=== PATIENT | male | born 1960 | race Caucasian/White ===

== ENCOUNTER 2016-09-19 06:54 | Day surgery (SDC) | payer OTHER ==
[~2016-09-19] VITALS: Ht 193 cm; Wt 112.0 kg
[~2016-09-19 06:54] MED LIST: AMOX875T PO
[2016-09-19 07:25] VITALS: BP 139/85; PULSE 64; RESP 16; TEMP 98.8; O2SAT 99
[2016-09-19] MEDS ORDERED: NEXI20CA PO (07:37)
[2016-09-19] MEDS ORDERED: ceFAZolin INJ 1,000 MG VIAL ONE (07:39)
[2016-09-19] MEDS ORDERED: METOPROLOL TARTRATE 25 MG TAB PO PRN (08:30)
[2016-09-19] MEDS ORDERED: INSULIN HUMAN REGULAR 1,000 UNITS/10 ML VIAL SQ PRN (08:30)
[2016-09-19] MEDS ORDERED: BUPIVACAINE HCL PF 0.5% 30 ML VIAL ONE (08:54)
[2016-09-19] MEDS ORDERED: LIDOCAINE HCL 2% 50 ML VIAL ONE (08:54)
[2016-09-19] MEDS ORDERED: SODIUM CHLORID 0.9% 500 ML IV SCH (09:00)
[2016-09-19] MEDS ORDERED: LACTATED RINGER'S 1000 ML IV SCH (09:00)
[2016-09-19] MEDS ORDERED: ceFAZolin 2 GM PREMIX 50 ML ONE (09:01)
[2016-09-19] MEDS ORDERED: NEOMYCIN/POLYMYXIN 1 ML G.U. IRRIGANT IR ONE (09:44)
[2016-09-19] MEDS ORDERED: DO NOT ADM ANY ANTICOAGULANT DRUGS XX PRN (11:04)
[2016-09-19] MEDS ORDERED: CEPH-460 PO (11:08)
[2016-09-19] MEDS ORDERED: NORC5TAB PO (11:08)
[2016-09-19] MEDS ORDERED: fentaNYL CITRATE 250 MCG/5 ML AMP ONE (11:15)
[2016-09-19] MEDS ORDERED: MIDAZOLAM HCL 2 MG/2 ML VIAL ONE (11:15)
[2016-09-19] MEDS ORDERED: MORPHINE SULFATE 4 MG/ML INJ ONE (11:16)
[2016-09-19] MEDS ORDERED: PROPOFOL 200 MG/20 ML AMP IV ONE (11:46)
[2016-09-19] MEDS ORDERED: PHENYLEPH/NS 1000 MCG/10 ML SYR IV ONE (11:46)
[2016-09-19] MEDS ORDERED: ONDANSETRON HCL 4 MG/2 ML VIAL IV PUSH ONE (11:46)
[2016-09-19] MEDS ORDERED: ePHEDrine/NS 50 MG/5 ML SYR IV ONE (11:46)
[2016-09-19] MEDS ORDERED: MEPERIDINE HCL 50 MG/ML VIAL IM PRN (12:00)
[2016-09-19] MEDS ORDERED: ACETAMINOPHEN/HYDROcodone 325 MG/5 MG TAB PO PRN (12:00)
[2016-09-19 12:05] VITALS: TEMP 97.4
[2016-09-19 12:16] VITALS: BP 156/75; PULSE 72; RESP 12; O2SAT 96
--- NOTE | 2016-09-19 14:13 | EKG ---
Date Performed: 09/19/2016 Time Performed: 08:02:28 PTAGE: 56 years EKG: SINUS BRADYCARDIA BORDERLINE ECG NO PREVIOUS TRACING DOCTOR: Dirk Terrell Interpretating Date/Time 09/19/2016 14:10:38
--- NOTE | 2016-09-23 08:15 | MP ---
cc: SEAN RONQUILLO III, M.D. DATE OF OPERATION 09/19/2016. PREOPERATIVE DIAGNOSIS Right fifth finger flexor tendon lacerations. PROCEDURE Right fifth finger exploration and repair of flexor digitorum profundus and flexor digitorum superficialis tendon. SURGEON Sean Ronquillo III, MD TOURNIQUET TIME Approximately 70 minutes at 200 mmHg. PROCEDURE The patient was brought to the operating room and placed supine on the operating room table. After the correct site and side of the surgery were verified by members of each team in the room multiple times including the patient and myself and after adequate preoperative markings and preoperative written consent were verified by everyone and after adequate preoperative time-out was performed to everyone's satisfaction, after adequate general anesthesia had been achieved, the right upper extremity was prepped and draped in traditional sterile surgical fashion. A 50/50 mixture of 2% plain lidocaine and 0.5% plain Marcaine was infiltrated in the skin and subcutaneous tissue in the palm to provide for postoperative pain control. The sutures were removed and the area reprepped. The limb was exsanguinated with a gentle Mikhail wrap and a highly placed, well-padded axillary tourniquet was inflated to 200 mmHg for approximately 70 minutes. The wound was opened. The culture was obtained from deep in the wound. Thorough irrigation was performed. Examination revealed both flexor tendons to the fifth finger were transected. The wound was then opened for exposure distally. The A1 sujatha was released. The flexor tendons were identified proximally and distally and both the FDS and the FDP tendons were repaired, the repair centered deep to the A2 sujatha. The A2 sujatha had to be reconstructed to allow for excursion as there was no motion underneath the sujatha once the repair was done and this was done with local tissue, mainly the sujatha itself using 4-0 Mersilene sutures. The flexor tendons were reapproximated, the FDS using 3-0 Prolene sutures in a xidxeh-[id number]-[id number] fashion on both corners and then the FDP was repaired using 3-0 Prolene sutures and tapered needles for a four core strand repair in a modified locking and nonlocking Dunn fashion. At the end, tenodesis was performed and was normal. There were no other anatomic abnormalities identified. Thorough irrigation was performed using saline. The skin edges were reapproximated using interrupted and running 5-0 chromic sutures. The hand and arm were thoroughly cleansed and dried. Betadine and Adaptic dressings was applied on top of the wound, followed by a very bulky, well-padded, well molded dorsal blocking splint keeping the third, fourth and fifth fingers flexed as well as the wrist gently flexed. The axillary tourniquet was released. The hand and all the fingers became immediately soft, pink and warm and had brisk capillary refill of less than 2 seconds. There was no bleeding or evidence thereof. Hemostasis was present. The patient was awakened from anesthesia and transported to the Post-Anesthesia Care Unit awake and in stable condition at the end of the case. Sponge, needle and instrument counts were correct at the end of the case as reported by the nurses in the room. MD VARGAS Norton III/RODRICK /11:11 AM /7:56 AM
== END 2016-09-19 12:35 | disposition home or self-care (01) ==
LOC: HSDC 06:54
PROVIDERS: ATTEND Orthopaedic Surgery Hand Surgery
DX: S66.126A Laceration of flexor muscle, fascia and tendon of right little finger at wrist and hand level, initial encounter (principal); W27.8XXA Contact with other nonpowered hand tool, initial encounter; Y93.89 Activity, other specified; Z01.810 Encounter for preprocedural cardiovascular examination
CPT/HCPCS: 01810; 26356; 87015; 87070; 87102; 87116; 87205; 87206; 93005; J0690; J2250; J2270; J2370; J2405; J3010

== ENCOUNTER 2017-12-08 19:28 | Emergency (ER) | payer OTHER ==
[~2017-12-08] VITALS: Ht 193 cm; Wt 112.5 kg
[~2017-12-08 19:28] MED LIST changes: -AMOX875T PO; +NEXI20CA PO
[2017-12-08 21:15] VITALS: BP 143/107; PULSE 90; RESP 18; TEMP 98.4; O2SAT 99
--- NOTE | 2017-12-08 21:54 | RADRPT ---
EXAM DATE/TIME: 12/08/2017 21:33 [facility] COMPARISON: No previous studies available for comparison. INDICATIONS : Patient rolled ankle and twisted right knee. Complains of right knee pain and swelling near patella. MEDICAL HISTORY : None. SURGICAL HISTORY : None. ENCOUNTER: Initial ACUITY: 1 day PAIN SCORE: 8/10 LOCATION: Right Knee FINDINGS: Trace joint effusion mild degenerative changes patellofemoral compartment. No fracture. Alignment. CONCLUSION: Trace joint effusion with degenerative changes patellofemoral compartment Everardo Nevarez MD FACR on December 08, 2017 at 21:51 Board Certified Radiologist. This report was verified electronically.
== END 2017-12-08 23:10 | disposition left against medical advice (07) ==
LOC: NED 19:28
DX: M25.461 Effusion, right knee (principal)
CPT/HCPCS: 73564; 99281